=== PATIENT | female | born 1985 | race Hispanic/Latino ===

== ENCOUNTER 2018-07-23 23:39 | Emergency (ER) | payer OTHER ==
[2018-07-23 23:47] VITALS: RESP 20; O2SAT 99
[2018-07-24 03:32] VITALS: BP 132/75; PULSE 68; TEMP 98.1
--- NOTE | 2018-07-24 04:59 | ED PDOC ---
HPI: Allergic Reaction Time Seen by Provider: 07/23/18 23:49 Chief Complaint (Nursing): Abnormal Skin Integrity History Per: Patient History/Exam Limitations: no limitations Onset/Duration Of Symptoms: Days Current Symptoms Are (Timing): Better Additional Complaint(s): No PMHx presenting with allergic reaction, states it started on Saturday with rash to arms and legs, states that she has had "throat closure" symptoms in the morning that resolve with hot tea. States she may have been exposed to a tick that caused her to have red meat intolerance because she states she ate beef on Saturday and had the rash and had beef again last night with rash. STaets the rash has improved with benadryl. No difficulty breathing, no wheezing, no other syptoms, no other new exposures patient can think of. No bites on skin. Past Medical History Reviewed: Historical Data, Nursing Documentation, Vital Signs Vital Signs: Last Vital Signs Temp 98.1 F 07/24/18 01:50 Pulse 68 07/24/18 01:50 Resp 20 07/24/18 01:50 BP 132/75 07/24/18 01:50 Pulse Ox 99 07/24/18 01:50 - Medical History PMH: No Chronic Diseases - Family History Family History: States: Unknown Family Hx - Home Medications Home Medications: Ambulatory Orders Medication Instructions Recorded Epinephrine [Epipen] 0.3 mg IJ PRN PRN #2 auto.injct 07/24/18 Methylprednisolone [Medrol Dose 4 mg PO DAILY #21 mg 07/24/18 Pack (21 tabs)] - Allergies Allergies/Adverse Reactions: Allergies Allergy/AdvReac Type Severity Reaction Status Date / Time No Known Allergies Allergy Verified 07/23/18 23:44 Review of Systems ROS Statement: Except As Marked, All Systems Reviewed And Found Negative Skin: Positive for: Rash Physical Exam - Reviewed Nursing Documentation Reviewed: Yes Vital Signs Reviewed: Yes - Physical Exam Appears: Positive for: Well, Non-toxic, No Acute Distress Head Exam: Positive for: ATRAUMATIC, NORMAL INSPECTION, NORMOCEPHALIC Skin: Positive for: Rash (Mild scattered urticarial rash to thighs and distal forearms/hands, blanching, no cellulitis) Eye Exam: Positive for: EOMI, Normal appearance, PERRL ENT: Positive for: Normal ENT Inspection Neck: Positive for: Normal, Painless ROM Cardiovascular/Chest: Positive for: Regular Rate, Rhythm Respiratory: Positive for: CNT, Normal Breath Sounds Gastrointestinal/Abdominal: Positive for: Normal Exam, Soft Back: Positive for: Normal Inspection Extremity: Positive for: Normal ROM Neurologic/Psych: Positive for: Alert, hide salter II-XII, Oriented - ECG O2 Sat by Pulse Oximetry: 99 Pulse Ox Interpretation: Normal - Progress ED Course And Treament: Patient presenting with uritcarial rash x 1 week --Very well appearing, normal vitals, no signs of anaphylaxis or airway involvement --Will treat symptomatically with benadryl --Advised patient to followup with allergy/immunology for further testing Disposition - Clinical Impression Clinical Impression: Allergic dermatitis - Disposition Referrals: [facility] [Outside] Disposition: Routine/Home Disposition Time: 01:50 Condition: GOOD Prescriptions: Epinephrine [Epipen] 0.3 mg IJ PRN PRN #2 auto.injct PRN Reason: Anaphylaxis Methylprednisolone [Medrol Dose Pack (21 tabs)] 4 mg PO DAILY #21 mg Instructions: Shiraz (HEATHER) Forms: [employer] ([place])
== END 2018-07-24 01:50 | disposition home or self-care (01) ==
LOC: H.ER 23:39
DX: L23.9 Allergic contact dermatitis, unspecified cause (principal)